=== PATIENT | female | born 2005 | race Asian ===

== ENCOUNTER 2024-07-20 11:13 | Emergency (ER) | payer OTHER, SELFPAY ==
--- NOTE | 2024-07-20 11:20 | ED.GENADULT ---
HPI - General Adult General Date Seen: 07/20/24 Chief complaint: Sore Throat Stated complaint: swollen tonsils Time Seen by Provider: 07/20/24 11:19 History of Present Illness HPI narrative: This is a very pleasant generally healthy 18 yo F caution presenting to the ER today with sore throat, swollen tonsils, hoarse voice. She and her college roommate have both been sick. She 1st developed symptoms 4 days ago on . She actually got her COVID and flu shot that day and was running a bit of a fever that night. Initially she thought that she was probably running a fever because of her vaccines. Subsequently she developed some sore throat, nasal congestion. She has been feeling unwell since then. She has really not had much cough, perhaps 1 time. No nausea or vomiting. No abdominal pain. No diarrhea. She has not had any persistent high fevers. She has been using Tylenol or ibuprofen if needed for pain. Today she was having increasing throat pain and more swelling in her throat and developed some hoarseness in her voice. She came to the ER. She took ibuprofen about 2 hours prior to arrival in her throat already feeling better. She does not need any more medicine for pain. PFSH PFS Social History Smoking Status: Never smoker Do you use any of these nicotine containing products: None Second hand tobacco smoke exposure: No How often do you have a drink containing alcohol: monthly or less How many standard drinks containing alcohol do you have on a typical day: 1 or 2 How often do you have six or more drinks on one occasion: Less than monthly AUDIT-C Alcohol total score: 2 Non-prescribed substance use: denies use service: No Exam Narrative: Exam Narrative: Constitutional: Appears well-developed and well-nourished. Alert. Conversant. Non toxic. She does have a mildly raspy voice but no hot potato voice or hoarseness. Airway widely patent. No stridor. HENT: Head: Atraumatic. Nose: Nose normal. Mouth/Throat: Oral mucosa is clear and moist. no trismus. Pharynx erythematous with bilateral symmetrically enlarged tonsils. Tonsils are erythematous but not exudative. Uvula midline. No evidence for [employer] W[employer]AKER. Eyes: Conjunctivae normal. EOM normal. Pupils equal, round, and reactive to light. No scleral icterus. Neck: Normal range of motion. Neck supple. No tracheal deviation present. Cardiovascular: Normal rate, regular rhythm. No gallop. No friction rub. No murmur heard. Symmetric radial artery pulses Pulmonary/Chest: Effort normal. No stridor. No respiratory distress. No wheezes. No rales. No rhonchi . No tenderness. Abdominal: Soft. No splenomegaly No distension. No mass. No tenderness. No rebound. No guarding. Musculoskeletal: RUE: Normal range of motion. No tenderness. No deformity LUE: Normal range of motion. No tenderness. No deformity RLE: Normal range of motion. No edema. No tenderness. No deformity LLE: Normal range of motion. No edema. No tenderness. No deformity Lymph: bilateral anterior cervical adenopathy. Neurological: Alert and oriented to person, place, and time. Normal strength. CN II-VII intact. No sensory deficit. GCS eye subscore is 4. GCS verbal subscore is 5. GCS motor subscore is 6. Normal coordination Skin: Skin is warm and dry. No rash noted. No pallor. Normal capillary refill. Psychiatric: Normal mood. Normal affect. Const: Vital Signs, click to edit/add: Vital Signs - 24 hr 07/20/24 11:22 Temperature 98.2 F Pulse Rate [Right Radial] 102 H Blood Pressure [Le ft Upper Arm] 117/83 Pulse Oximetry 100 Oxygen Delivery Me thod Room Air Course Vital Signs Vital signs: Initial Vital Signs Temperature 98.2 F 07/20/24 11:22 Temperature Source Temporal Artery Scan 07/20/24 11:22 Pulse Rate 102 H 07/20/24 11:22 Pulse Rhythm Regular 07/20/24 11:22 Blood Pressure 117/83 07/20/24 11:22 Blood Pressure Mean 94 07/20/24 11:22 Pulse Oximetry 100 07/20/24 11:22 Oxygen Delivery Method Room Air 07/20/24 11:22 Vital Signs Temperature 98.2 F 07/20/24 11:22 Pulse Rate 102 H 07/20/24 11:22 Blood Pressure 117/83 07/20/24 11:22 Pulse Oximetry 100 07/20/24 11:22 Oxygen Delivery Method Room Air 07/20/24 11:22 Temperature 98.2 F 07/20/24 11:22 Pulse Rate 102 H 07/20/24 11:22 Blood Pressure 117/83 07/20/24 11:22 Pulse Oximetry 100 07/20/24 11:22 Oxygen Delivery Method Room Air 07/20/24 11:22 Medical Decision Making MDM Narrative Medical decision making narrative: This patient presented with sore throat and clinical evidence of pharyngitis. Her roommate has a similar illness. She did a COVID test at home and it was negative. We discussed possibly doing a genetic based COVID influenza swab here, but using shared decision making we decided hold off on that. We do want a proceed with strep testing. The rapid strep test is negative, and formal culture has been set up in the lab. There is no clinical evidence of peritonsillar abscess, retropharyngeal abscess, Lemierre's Syndrome, epiglottis, or Bruce's angina. The etiology is most likely viral. No other vescular lesions to suggest HFM. The patient's symptoms are consistent with viral pharyngitis. Differential would also include mono. At this point I do not think she would benefit from mono spot. She has only had illness for 4 days and likely would have a negative antibody at this point. No splenomegaly on exam today. Discussed that if she is not improving in the next few days she should follow-up for recheck. if necessary we consider mono testing later. I have recommended treatment with analgesics, and anticipate improvement of viral illness over the next 3-4 days. Return right away if increasing pain, change in voice, neck pain, vomiting, fever, trouble swallowing, throat swelling, or shortness of breath. Follow-up with primary physician if not improving in 3-5 days. Lab Data Labs: Lab Results 07/20/24 Range/Units 11:40 Group A Strep DNA NOT DETECTED (Not Detectd) Discharge Plan Discharge Clinical Impression: Pharyngitis Patient Disposition: Home, Self-Care Condition: Stable Instructions: Pharyngitis (ED) Additional Instructions: Please come back to the ER right away if you have worsening pain in your throat, more trouble breathing, trouble swallowing, high fevers, or any other concerning symptoms. Your strep test is negative today. We presume that your inflamed tonsils and sore throat are caused by a viral infection. We expect this will get better over the next few days. However, if you are not substantially improved within the next 3-4 days, please come back to the ER or see your doctor for a recheck. Stand Alone Forms: [employer] Info Instructions
[2024-07-20 11:22] VITALS: BP 117/83; PULSE 102; TEMP 36.8; O2SAT 100; BMI 23.5
[2024-07-20 12:17] LABS: Strep A DNA Probe* NOT DETECTED (Not Detectd)
[2024-07-20 12:42] VITALS: BP 118/77; PULSE 81; RESP 12
== END 2024-07-20 12:44 | disposition home or self-care (01) ==
LOC: ED 12:42
PROVIDERS: Emergency Provider Emergency Medicine
DX: J02.9 Acute pharyngitis, unspecified (principal)
CPT/HCPCS: 87631; 87651; 99282; 99283

== ENCOUNTER 2025-03-16 22:52 | Emergency (ER) | payer OTHER, SELFPAY ==
[2025-03-16 23:03] VITALS: BP 151/91; PULSE 106; RESP 20; TEMP 36.3; O2SAT 100; BMI 23.4
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
== END 2025-03-17 00:38 | disposition home or self-care (01) ==
LOC: ED 03-17 00:33
PROVIDERS: Emergency Provider Family Medicine
DX: R51.9 Headache, unspecified (principal); T48.3X5A Adverse effect of antitussives, initial encounter
CPT/HCPCS: 99282; 99283

== ENCOUNTER 2025-08-07 18:43 | Emergency (ER) | payer OTHER, SELFPAY ==
[2025-08-07 19:00] VITALS: BP 136/83; PULSE 98; RESP 16; TEMP 36.9; O2SAT 100; BMI 23.6
--- NOTE | 2025-08-07 19:58 | ED_ITS ---
HPI - General Adult General Date Seen: 08/07/25 Chief complaint: Allergic Reaction Stated complaint: Allergic reaction--hives Time Seen by Provider: 08/07/25 19:14 History of Present Illness HPI narrative: Patient is a 19-year-old generally healthy young woman, [employer] student originally from [place]. Yesterday she developed some scattered hives on her torso and arms which have continued today, and then a few hours prior to presentation she developed swelling of her lower lip associated with some pain on left aspect of the lip. She has no history of similar symptoms, no known allergies and no specific unusual exposures. She took some Claritin yesterday. No breathing difficulties, no trouble swallowing. Related Data Previous Rx's ?Medication ?Instructions ?Recorded valacyclovir 1 gram tablet 2,000 mg (2 x 1 gram) PO DA KAITLIN #2 08/07/25 (Valtrex) tabs Allergies Allergy/AdvReac Type Severity Reaction Status Date / Time No Known Drug Allergies Allergy Verified 03/16/25 23:09 Review of Systems Status of ROS: Reports: 6 or more systems reviewed and unremarkable except as noted in History and below PFSH PFS Social History Smoking Status: Never smoker Do you use any of these nicotine containing products: None Second hand tobacco smoke exposure: No How often do you have a drink containing alcohol: monthly or less How many standard drinks containing alcohol do you have on a typical day: 1 or 2 How often do you have six or more drinks on one occasion: Less than monthly AUDIT-C Alcohol total score: 2 Non-prescribed substance use: denies use service: No Exam Narrative: Exam Narrative: Vital signs reviewed In general, alert, nontoxic young woman. Breathing easily. Head: Normocephalic, atraumatic. Eyes: Sclera clear. Pupils equal and reactive. ENT: Mucous membranes moist. The lower lip is swollen, with a an area of very tiny possibly vesicular lesions associated with a little bit more prominent swelling and tenderness. Oropharynx is entirely normal, airway patent. Neck: Supple without adenopathy. No stridor. Heart: Regular rate and rhythm without murmur. Lungs: Clear. No increased work of breathing, crackles or wheezes. Abdomen: Soft, nontender to palpation. Extremities: Well perfused, pulses intact. No significant edema. Neurologic: Alert, conversant. Speech fluent, face symmetric. Moves all extremities equally. Skin: Warm, dry well perfused. Scattered hives. Affect: Normal. Const: Vital Signs, click to edit/add: Vital Signs - 24 hr 08/07/25 19:00 08/07/25 20:27 08/07/25 20:28 Temperature 98.4 F 98.4 F 98.4 F Pulse Rate [Pulse Oximeter] 98 89 89 Respiratory Rate 16 16 16 Blood Pressure [Ri ght Upper Arm] 136/83 128/78 128/78 Pulse Oximetry 100 100 Oxygen Delivery Me thod Room Air Room Air Course Course ED Course: The fact that she has is painful area on her lip I think raises the possibility of this being HSV related although the hives are somewhat atypical. Lip could also represent angioedema although the focal area of pain would be atypical for that. Certainly does not have any airway compromise. We watched her here in the ER for about 90 minutes with no change in her status. She had some Benadryl. I sent off an HSV swab, I think it will cover her with some Valtrex while we await the swab. Continue with antihistamines. Observation here in the ER for about 90 minutes, no worsening. I think it is reasonable to send her home with above treatment. Return for worsening, difficulty breathing, increased swelling etcetera. Otherwise medications as above. Primary care follow-up if not improving over the next several days. Vital Signs Vital signs: Initial Vital Signs Temperature 98.4 F 08/07/25 19:00 Temperature Source Temporal Artery Scan 08/07/25 19:00 Pulse Rate 98 08/07/25 19:00 Respiratory Rate 16 08/07/25 19:00 Blood Pressure 136/83 08/07/25 19:00 Blood Pressure Mean 100 08/07/25 19:00 Blood Pressure Position Sitting 08/07/25 19:00 Pulse Oximetry 100 08/07/25 19:00 Oxygen Delivery Method Room Air 08/07/25 19:00 Vital Signs Temperature 98.4 F 08/07/25 19:00 Pulse Rate 98 08/07/25 19:00 Respiratory Rate 16 08/07/25 19:00 Blood Pressure 136/83 08/07/25 19:00 Pulse Oximetry 100 08/07/25 19:00 Oxygen Delivery Method Room Air 08/07/25 19:00 Temperature 98.4 F 08/07/25 20:28 Pulse Rate 89 08/07/25 20:28 Respiratory Rate 16 08/07/25 20:28 Blood Pressure 128/78 08/07/25 20:28 Pulse Oximetry 100 08/07/25 20:27 Oxygen Delivery Method Room Air 08/07/25 20:27 Medications Administered Medications: Discontinued Medications Generic Name Dose Route Start Last Admin Trade Name Calvin PRN Reason Stop Dose Admin Diphenhydramine HCl 50 mg 08/07/25 19:15 08/07/25 19:05 Diphenhydramine 25 Mg Capsule PO 08/07/25 19:16 50 mg ONCE ONE Administration Valacyclovir HCl 2,000 mg 08/07/25 20:04 08/07/25 20:25 Valacyclovir Hcl 500 Mg Tablet PO 08/07/25 20:05 2,000 mg ONCE ONE Administration Discharge Plan Discharge Clinical Impression: Urticaria, Pain, lip Patient Disposition: Home, Self-Care Condition: Stable Instructions: Urticaria (ED) Additional Instructions: I have sent a prescription for you for Valtrex, which is a medication used to treat cold sores. HSV swab is pending. I would continue to take an antihistamine on a scheduled basis for couple of days. I would take something like Claritin twice a day, or Benadryl 4 times a day. If symptoms are not improving despite treatment over the next few days, please follow-up with primary care. Return any time if you feel your getting worse, note more significant swelling, difficulty breathing, wheezing, other new symptoms. Prescriptions: New valacyclovir [Valtrex] 1 gram tablet 2,000 mg PO DAILY Qty: 2 2RF Follow Up/Referrals: Provider,Not a Local [Primary Care Provider, Family Practice] Stand Alone Forms: [employer] Info Instructions
[2025-08-07] MEDS: VALACYCLOVIR HCL 500 MG TABLET 2000 MG PO (20:25)
[2025-08-07 20:27] VITALS: BP 128/78; PULSE 89; RESP 16; TEMP 36.9; O2SAT 100
[2025-08-07 20:28] VITALS: BP 128/78; PULSE 89; RESP 16; TEMP 36.9
== END 2025-08-07 20:29 | disposition home or self-care (01) ==
PROVIDERS: Emergency Provider Emergency Medicine
DX: L50.9 Urticaria, unspecified (principal); K13.0 Diseases of lips
CPT/HCPCS: 36415; 86694; 99283; 99284; A9270